=== PATIENT | male | born 1945 | race Caucasian/White ===

== ENCOUNTER → 2017-11-23 07:02 | Outpatient (CLI) | payer MEDICARE, SELFPAY ==
[2017-11-23 09:53] LABS: Alanine Aminotransferase 34 U/L (12-78); Albumin Level 3.4 gm/dL (3.4-5.0); Alkaline Phosphatase 71 U/L (46-116); Anion Gap 8.6 mEq/L (5-15); Aspartate Amino Transferase 23 U/L (15-37); Bilirubin,Total 0.4 mg/dL (0.2-1.0); Blood Urea Nitrogen 24 mg/dL (7-18); Carbon Dioxide 29 mmol/L (21.0-32.0); Chloride 105 mmol/L (98-107); Chol/HDL Ratio 5.5 (1-3.5); Cholesterol 210 mg/dL (140-200); Creatinine,Serum 1.07 mg/dL (0.70-1.30); Estimated Glomerular Filt Rate 68 ml/min (>60); GFR (African American) 83 ML/MIN (>60); Globulin 3.3 gm/dl (1.3-3.2); Glucose 100 mg/dL (74-106); HDL Cholesterol 38 mg/dL (27-67); LDL Cholesterol 135 mg/dL (0-130); Potassium 4.6 mmoL/L (3.5-5.1); Prostate Specific Ag, Diagnost 0.53 ng/mL (0.0-4.0); Sodium 138 mmol/L (136-145); Thyroid Stimulating Hormone 2.14 uIU/ml (0.358-3.740); Total Protein,Serum 6.7 gm/dL (6.4-8.2); Triglycerides 186 mg/dL (30-200); VLDL Cholesterol 37 mg/dL (0-40)
== END ==
PROVIDERS: Visit Provider Internal Medicine
DX: E78.5 Hyperlipidemia, unspecified (principal); N40.1 Benign prostatic hyperplasia with lower urinary tract symptoms; F41.9 Anxiety disorder, unspecified
CPT/HCPCS: 36415; 80053; 80061; 84153; 84443

== ENCOUNTER → 2018-12-09 10:29 | Outpatient (CLI) | payer MEDICARE, SELFPAY ==
--- NOTE | 2018-12-09 10:32 | MR_ITS ---
MR ankle LT wo con ORDERING PHYSICIAN : Efren Galo PATIENT AGE: 73 years GENDER: Male HISTORY:ITS.REASON: ACHILLES TENDONITIS, LEFT LEG COMPARISON: View of the left ankle from 05/13/2015. TECHNIQUE: Routine multiplanar and multisequence are obtained. FINDINGS: Signal from the osseous marrow elements are normal. There is a small amount of tibiotalar joint fluid. There is some increased T2 signal in the medial and lateral subcutaneous soft tissues. The AP diameter of the Achilles tendon is not 0.1 mm. The upper limits of normal is usually 8.0 mm. There is also some intermediate signal within the central and left side of the Achilles tendon. There is no acute Achilles tendon tear. There is a small amount of fluid surrounding the history tibialis tendon and flexor hallux longus tendon although the flexor hallux longus tendon can communicate with the joint space 20% of the time and could account for the fluid. The remainder of the medial, anterior and lateral tendons. Normal. The anterior tibiofibular and talofibular ligaments are intact. IMPRESSION: Achilles tendinosis. Mediolateral mild subcutaneous edema. Mild tenosynovitis of the posterior tibialis tendon. This could also involve the flexor hallux longus tendon although some of this fluid could be related to the small joint effusion.
== END ==
PROVIDERS: PCP Internal Medicine; Visit Provider Orthopaedic Surgery
DX: M76.62 Achilles tendinitis, left leg (principal)
CPT/HCPCS: 73721

== ENCOUNTER 2020-06-21 15:47 | Emergency (ER) | payer MEDICARE, SELFPAY ==
[2020-06-21 16:27] VITALS: RESP 16; TEMP 36.6; O2SAT 98; BMI 29.5
--- NOTE | 2020-06-21 16:37 | HMH.EDUTC ---
[facility] [place] Clinical Impression: Exposure to COVID-19 virus Disposition: Home, Self-Care Condition on Discharge: Good Instructions: DI for COVID-19 (Suspected or Confirmed ), Coronavirus Disease 2019, COVID-19: Testing and Tracing, Preventing the Spread of Coronavirus Discharge Instructions Additional Instructions: *Monitor Temp, Over the counter Motrin or Tylenol as directed/as needed Tylenol every 4 hours and Motrin every 6 hours (as long as your family doctor has told you that you can take it) for fever or pain. and straight to ER if unable to lower temp less than 101.0 after medication given Follow up IMMEDIATELY for new or worsening symptoms or no Noticeable improvement over the next 48-72 hours. 911 for difficulty breathing or swallowing You were tested for today for COVID19 your test result should be back in the next 24-48 hours, you may call to the [facility] to see if your test results are back in the next 48 hours [phone] [facility] hours are 9am-9pm You was given a handout with instructions for Self Quarantine and Self isolation for while you wait on test results and what to do if they are positive If you are positive the Health Dept will be contacting you also Referrals: Reymundo Segura [Primary Care Provider] - As needed Time of Disposition: 16:39 Medical Decision Making - Rodrigo Inquiry Pt receiving controlled substance: No Rodrigo was queried for this patient: No Vital Signs: 06/21/20 16:27 Temperature 98 F Temperature Source Oral Respiratory Rate 16 02 Sat by Pulse Oximetry 98 Oxygen Delivery Method Room Air Orders (Tests/Meds): ORDERS Category Date Time Status Covid-19 Nasal PCR ([facility]) Routine Lab 06/21/20 15:52 Ordered [facility] [place]PI - General Stated complaint: covid test Time Seen by Provider: 06/21/20 16:37 Mode of Arrival: Ambulatory Source of Information: Patient Limitations: No Limitations Description of Symptoms (Recalled from Triage Doc. by RN): pt wants covid test; denies any symptoms HEENT Symptoms (Recalled from RN notes): No Resp Symptoms (Recalled from RN notes): No Skin Symptoms (Recalled from RN notes): No MS Symptoms (Recalled from RN notes): No Functional Status (Recalled from RN notes): na - History of Present Illness Provider Complaint: Patient states that he was recently around someone that tested positive for COVID States that he is not having any symptoms but wants to get tested - Related Data Home Medications Medication Instructions Recorded Confirmed finasteride 5 mg tablet 5 mg PO DAILY tab 01/04/18 01/10/19 lorazepam 0.5 mg tablet 0.5 mg PO QHS PRN 01/04/18 01/10/19 omeprazole 20 mg capsule,delayed 20 mg PO QHS cap 01/04/18 01/10/19 release sertraline 25 mg tablet 25 mg PO Q24H 01/04/18 01/10/19 tamsulosin 0.4 mg capsule 0.4 mg PO DAILY cap 01/04/18 01/10/19 Allergies Allergy/AdvReac Type Severity Reaction Status Date / Time No Known Allergies Allergy Unverified 01/10/19 15:26 - Worker's Comp Is this a Worker's Comp case?: No [facility] History - Hepatitis A Screen Drug use history?: No High risk sexual behaviors?: No History of sexually transmitted infection?: No Currently employed?: No Childcare worker?: No Do you have indoor plumbing?: Yes Do you have electricity?: Yes Attestation statement:: This patient has been screened for Hepatitis A risk factors. I have reviewed the patient's past medical history: Yes Medical History: Reports:: Gastroesophageal Reflux Disease(GERD) Other Surgeries: Yes: Appendectomy, Colonoscopy Comment: L Arm x4 - Social History Smoking Status: Unknown if ever smoked Alcohol Intake: never Occupational Status: retired Family Hx:: Cancer ROS Obtained: Yes All systems reviewed & no additional complaints, Yes Systems reviewed as appropriate & no additional complaints - Constitutional Constitutional: Reports system reviewed and no additional complaints, except as docu, Denies body ache, Denies chills,
[2020-06-21 16:47] VITALS: BP 0/0; PULSE 87; RESP 16; TEMP 36.6; O2SAT 98
== END 2020-06-21 16:48 | disposition home or self-care (01) ==
PROVIDERS: Emergency Provider Nurse Practitioner; PCP Internal Medicine
DX: Z20.822 Contact with and (suspected) exposure to COVID-19 (principal)
CPT/HCPCS: G0463; 99202; U0003

== ENCOUNTER → 2022-05-18 17:26 | Outpatient (CLI) | payer MEDICARE, SELFPAY ==
[2022-05-18 19:58] LABS: Basophils # 0.1 K/mm3 (0-0.2); Basophils % 0.6 % (0.1-2.0); Eosinophils # 0.1 K/mm3 (0.0-0.4); Eosinophils % 0.8 % (0.1-12.0); Hematocrit 45.2 % (42.0-52.0); Hemoglobin 14.6 g/dL (14.1-18.0); Lymphocytes # 1.9 K/mm3 (0.7-4.5); Lymphocytes % 17.1 % (10-50); Mean Corpuscular HGB Conc 32.2 g/dL (31.8-35.4); Mean Corpuscular Hemoglobin 31.2 pg (27.0-31.2); Mean Corpuscular Volume 96.8 fl (80-94); Mean Platelet Volume 8.5 fl (7.4-10.4); Monocytes # 0.5 K/mm3 (0.1-1.0); Monocytes % 4.9 % (1.7-9.3); Neutrophils # 8.3 K/mm3 (1.8-7.8); Neutrophils % 76.7 % (37.0-80.0); Platelet Count 316 K/mm3 (142-424); Red Blood Count 4.66 M/mm3 (4.60-6.20); Red Cell Distribution Width 12.7 % (11.5-17.5); White Blood Count 10.9 K/mm3 (4.8-10.8)
[2022-05-18 20:14] LABS: Alanine Aminotransferase 19 U/L (12-78); Albumin/Globulin Ratio 1.4 (1.1-1.8); Alkaline Phosphatase 95 U/L (38-126); Anion Gap 19.1 mEq/L (5-15); Aspartate Amino Transferase 22 U/L (17-59); Bilirubin,Total 0.4 mg/dl (0.2-1.3); Blood Urea Nitrogen 25 mg/dl (9-20); Carbon Dioxide 24 mmol/L (22.0-30.0); Chloride 101 mmol/L (98-107); Chol/HDL Ratio 4.4 (1-3.5); Cholesterol 211 mg/dl (140-200); Estimated Glomerular Filt Rate 65 ml/min (>60); GFR (African American) 79 ML/MIN (>60); Globulin 2.8 g/dL (1.3-3.2); Glucose 85 mg/dl (74-100); HDL Cholesterol 48 mg/dl (40-60); Potassium 4.1 mmoL/L (3.5-5.1); Sodium 140 mmol/L (136-145); Total Protein,Serum 6.8 g/dl (6.3-8.2); Triglycerides 102 mg/dl (30-150); VLDL Cholesterol 20 mg/dL (0-40)
[2022-05-18 20:25] LABS: Direct LDL Cholesterol 136.63 mg/dL (100-129)
[2022-05-18 20:44] LABS: Prostate Specific Ag Screen 0.5 ng/ml (0.0-4.0)
== END ==
PROVIDERS: PCP Internal Medicine; Visit Provider Internal Medicine
DX: E78.5 Hyperlipidemia, unspecified (principal); K21.9 Gastro-esophageal reflux disease without esophagitis; F41.9 Anxiety disorder, unspecified; K76.0 Fatty (change of) liver, not elsewhere classified; N40.1 Benign prostatic hyperplasia with lower urinary tract symptoms; Z12.5 Encounter for screening for malignant neoplasm of prostate
CPT/HCPCS: 80053; 80061; 85025; G0103

== ENCOUNTER 2023-09-29 12:27 | Outpatient (CLI) | payer MEDICARE, SELFPAY ==
[2023-09-29 12:59] LABS: Basophils # 0.1 K/mm3 (0-0.2); Basophils % 1.2 % (0.1-2.0); Eosinophils # 0.2 K/mm3 (0.0-0.4); Eosinophils % 2.4 % (0.1-12.0); Hematocrit 48.2 % (42.0-52.0); Hemoglobin 15.6 g/dL (14.1-18.0); Lymphocytes # 2.2 K/mm3 (0.7-4.5); Mean Corpuscular HGB Conc 32.3 g/dL (31.8-35.4); Mean Corpuscular Hemoglobin 31.6 pg (27.0-31.2); Mean Corpuscular Volume 97.8 fl (80-94); Mean Platelet Volume 8.3 fl (7.4-10.4); Monocytes # 0.4 K/mm3 (0.1-1.0); Monocytes % 5.5 % (1.7-9.3); Neutrophils # 3.9 K/mm3 (1.8-7.8); Platelet Count 308 K/mm3 (142-424); Red Blood Count 4.93 M/mm3 (4.60-6.20); Red Cell Distribution Width 12.9 % (11.5-17.5); White Blood Count 6.8 K/mm3 (4.8-10.8)
[2023-09-29 13:30] LABS: Alanine Aminotransferase 22 U/L (12-78); Albumin Level 4.3 g/dl (3.5-5.0); Albumin/Globulin Ratio 1.6 (1.1-1.8); Alkaline Phosphatase 64 U/L (38-126); Anion Gap 9.7 mEq/L (5-15); Aspartate Amino Transferase 29 U/L (17-59); Bilirubin,Total 0.5 mg/dl (0.2-1.3); Blood Urea Nitrogen 25 mg/dl (9-20); Calcium 9.4 mg/dl (8.4-10.2); Carbon Dioxide 25 mmol/L (22.0-30.0); Chloride 109 mmol/L (98-107); Chol/HDL Ratio 7.1 (1-3.5); Cholesterol 275 mg/dl (140-200); Estimated Glomerular Filt Rate 65 ml/min (>60); GFR (African American) 79 ML/MIN (>60); Globulin 2.7 g/dL (1.3-3.2); Glucose 97 mg/dl (74-100); HDL Cholesterol 39 mg/dl (40-60); Potassium 4.7 mmoL/L (3.5-5.1); Sodium 139 mmol/L (136-145); Triglycerides 152 mg/dl (30-150); VLDL Cholesterol 30 mg/dL (0-40)
[2023-09-29 13:40] LABS: Direct LDL Cholesterol 161.42 mg/dL (100-129)
[2023-09-29 14:00] LABS: Prostate Specific Ag Screen 0.4 ng/ml (0.0-4.0)
== END 2023-09-29 23:59 | disposition home or self-care (01) ==
LOC: LAB.DROPOF 12:28
PROVIDERS: PCP Internal Medicine; Visit Provider Internal Medicine
DX: E78.5 Hyperlipidemia, unspecified (principal); Z12.5 Encounter for screening for malignant neoplasm of prostate; M15.0 Primary generalized (osteo)arthritis; K76.0 Fatty (change of) liver, not elsewhere classified
CPT/HCPCS: 80053; 80061; 85025; G0103

== ENCOUNTER 2024-11-28 11:40 | Outpatient (CLI) | payer MEDICARE, SELFPAY ==
[2024-11-28 14:04] LABS: Prostate Specific Ag Screen 0.4 ng/ml (0.0-4.0)
== END 2024-11-28 23:59 | disposition home or self-care (01) ==
LOC: LAB 11:40
PROVIDERS: PCP Internal Medicine; Visit Provider Internal Medicine
DX: Z12.5 Encounter for screening for malignant neoplasm of prostate (principal)
CPT/HCPCS: 36415; G0103

== ENCOUNTER 2024-12-14 20:00 | Observation (INO) | payer MEDICARE, SELFPAY ==
[2024-12-14] VITALS (9 sets, daily range): BP systolic 149–190; BP diastolic 85–116; PULSE 64–82; RESP 13–18; TEMP 36.6; O2SAT 94–97; BMI 29.5
--- NOTE | 2024-12-14 20:18 | HMH.EDGENADL ---
Discharge Plan Disposition Patient Disposition: Admitted Condition: Fair Clinical Impressions Clinical Impression: Headache, Acute hyponatremia, Dehydration Discharge ED Provider: Milady Overton General Adult HPI General Chief complaint: Headache Stated complaint: nausea,headache, over heated Time Seen by Provider: 12/14/24 20:06 History of Present Illness HPI narrative: This patient is a 79-year-old male with a history of migraines and anxiety presenting to the emergency department for evaluation with concern for possible heat exhaustion, headache, and nausea. Patient reports that he was out in the heat all day working and then went golfing. He states that he had 2 beers while golfing but drink more water today than he ever has. He notes that despite maintaining adequate hydration, he started having severe headache, nausea, and just feels bad overall. He thinks that he got too hot. He took his migraine medication 2 hours ago but it did not help. He notes that headache was gradual in onset and is dull. It is not sudden onset worst headache of his life. He denies any visual changes, numbness, tingling, or other concerns. No pain elsewhere. Related Data Home Medications ?Medication ?Instructions ?Recorded ?Confirmed finasteride 5 mg tablet 5 mg PO DAILY 01/04/18 05/22/24 tamsulosin 0.4 mg capsule 0.4 mg PO DAILY 01/04/18 05/22/24 Previous Rx's ?Medication ?Instructions ?Recorded amoxicillin 500 mg capsule 1,000 mg (2 x 500 mg) PO BID #40 05/22/24 caps hydrocodone 5 mg-acetaminophen 325 1 tab PO Q8H PRN cough #30 tabs 05/22/24 mg tablet methylprednisolone 4 mg tablets in See Rx Instructions PO PER PKG DIR 05/22/24 a dose pack #21 tabs sertraline 50 mg tablet See Rx Instructions .Route 09/13/24 .COMPLEX #90 tabs omeprazole 40 mg capsule,delayed See Rx Instructions .Route 09/19/24 release .COMPLEX #90 caps trazodone 50 mg tablet 50 mg PO DAILY #90 tabs 10/12/24 indomethacin 25 mg capsule 25 mg PO Q8H #30 caps 10/13/24 lorazepam 0.5 mg tablet 0.5 mg PO TID PRN anxiety #60 tabs 11/03/24 Allergies Allergy/AdvReac Type Severity Reaction Status Date / Time No Known Allergies Allergy Verified 05/22/24 15:08 [facility] Disclaimer: The information contained in this section may have been updated after the patient was seen, as this information can be updated by other users. Surgical History (Updated 12/14/24 @ 22:45 by Stephy Han RN) History of surgery on arm History of appendectomy Social History Smoking Status: Never smoker alcohol intake: never current occupational status: retired Travel in the last 8 weeks?: None Have you lived/traveled outside [place] in past 30 days?: No Contact w/someone who lives/traveled outside US past 30 days?: No Exposure to someone with infectious disease in past 14 days?: No Do you have a fever (greater than 100.4 F or 38 C)?: No Have you tested positive for COVID-19?: No Exposed to someone with COVID-19 in past 14 days?: No Do you have a sore throat?: No Do you have a cough?: No Do you have any weakness?: No Do you have any diarrhea?: No Are you experiencing any unusual bleeding?: No Do you have any muscle aches/pain?: No Do you have any abdominal pain?: No Are you experiencing loss of taste or smell?: No Other Medical History Have you received the Flu Vaccine for this season: Yes Have you received the Pneumonia Vaccine: Yes ROS Obtained: Yes All systems reviewed & no additional complaints except as documented Physical Exam General General appearance: alert and in no apparent distress Head Head exam: atraumatic and normocephalic Eye Eye exam: Present normal appearance, PERRL and EOMI ENT ENT exam: Present normal exam, normal oropharynx, mucous membranes moist and normal external ear exam Neck Neck exam: Present normal inspection, full ROM and trachea midline; Absent tenderness Chest Chest inspection: Present normal inspection and symmetric chest wall rise; Absent tenderness Respiratory Respiratory exam: Present normal lung sounds bilaterally; Absent respiratory distress, wheezes, stridor or accessory muscle use Cardiovascular Cardiovascular exam: Present regular rate and normal rhythm Abdominal Exam Abdominal exam: Present soft; Absent distention, tenderness or guarding Extremities Exam Extremities exam: Present normal inspection, full ROM and normal capillary refill; Absent tenderness or edema Back Exam Back exam: Present normal inspection and full ROM; Absent tenderness Neurological Exam Neurological exam: Present alert, oriented X3, CN II-XII intact and normal gait; Absent motor sensory deficit Psychiatric Psychiatric exam: Present normal affect and normal mood Skin Skin exam: Present warm and dry Medical Decision Making Medical Records Medical records reviewed: Yes I reviewed the patient's medical records. Screening: Per USPSTF and CDC recommendations, given the prevalence of disease in our region, it is our hospital?s policy to screen for HIV and viral Hepatitis for all patients aged 18 and over and those with ongoing risk factors. Rodrigo Inquiry Pt receiving controlled substance: No Vital Signs: 12/14/24 20:10 12/14/24 20:16 12/14/24 20:30 Temperature 97.9 F Temperature Source Oral Pulse Rate 78 Pulse Rate [Left] 78 Respiratory Rate 16 Blood Pressure 190/101 H 177/100 H Blood Pressure [Right Arm] 190/101 H Blood Pressure Mean 138 Blood Pressure Mean [Right Arm] 130 Blood Pressure Source Blood Pressure Source [Right Arm] Automatic Cuff Blood Pressure Position Blood Pressure Position [Right Arm] Sitting 02 Sat by Pulse Oximetry 96 96 Oxygen Delivery Method Room Air 12/14/24 21:00 12/14/24 21:34 12/14/24 22:00 Temperature Temperature Source Pulse Rate 82 78 77 Pulse Rate [Left] Respiratory Rate 18 17 13 Blood Pressure 178/116 H 167/85 H 164/85 H Blood Pressure [Right Arm] Blood Pressure Mean 134 123 115 Blood Pressure Mean [Right Arm] Blood Pressure Source Blood Pressure Source [Right Arm] Blood Pressure Position Blood Pressure Position [Right Arm] 02 Sat by Pulse Oximetry 97 97 96 Oxygen Delivery Method 12/14/24 22:30 12/14/24 23:00 12/14/24 23:12 Temperature 97.9 F Temperature Source Oral Pulse Rate 69 64 64 Pulse Rate [Left] Respiratory Rate 16 16 14 Blood Pressure 158/89 H 149/88 H 149/88 H Blood Pressure [Right Arm] Blood Pressure Mean 123 116 Blood Pressure Mean [Right Arm] Blood Pressure Source Automatic Cuff Blood Pressure Source [Right Arm] Blood Pressure Position Sitting Blood Pressure Position [Right Arm] 02 Sat by Pulse Oximetry 96 94 L Oxygen Delivery Method Room Air Lab Data Lab results reviewed: Yes I reviewed the patient's lab results. Lab Results 12/14/24 20:15: WBC 9.9, RBC 4.25 L, Hgb 13.2 L, Hct 37.5 L, MCV 88.2, MCH 31.1, MCHC 35.2, RDW 11.9, Plt Count 263, MPV 9.1, Neut % (Auto) 67.9, Lymph % (Auto) 24.0, [place] % (Auto) 6.6, Eos % (Auto) 0.9, Baso % (Auto) 0.3, Neut # (Auto) 6.7, Lymph # (Auto) 2.4, [place] # (Auto) 0.7, Eos # (Auto) 0.1, Baso # (Auto) 0.0, PT 11.1, INR 1.00, VBG pH 7.41, VBG pCO2 32.5 L, VBG pO2 77.8 H, VBG HCO3 20.2 L, VBG Total CO2 21.2 L, VBG O2 Saturation 95.8 H, VBG Base Excess -4.4 L, VBG Lactic Acid 1.5, Sodium 123 L, Potassium 3.7, Chloride 94 L, Carbon Dioxide 21 L, Anion Gap 11.7, BUN 14, Creatinine 1.00, Estimated Creat Clear 87, Estimated GFR 72, Est GFR ( Amer) 88, Glucose 118 H, Calcium 8.8, Phosphorus 2.9, Magnesium 1.5 L, Total Bilirubin 1.1, AST 30, ALT 19, Alkaline Phosphatase 51, Total Creatine Kinase 183 H, Troponin I < 0.01, Total Protein 6.8, Albumin 4.1, Globulin 2.7, Albumin/Globulin Ratio 1.5, TSH 1.62, Thyroxine (T4) 8.1, HCV Ab SANCHEZ w/Rflx PCR Qn Negative, HIV Ag/Ab Combo Qual Negative 12/14/24 21:35: Urine Color Yellow, Urine Appearance Clear, Urine pH 6.5, Ur Specific [place] 1.010, Urine Protein Negative, Urine Glucose (UA) Negative, Urine Ketones Negative, Urine Blood Negative, Urine Nitrate Negative, Urine Bilirubin Negative, Urine Urobilinogen 0.2, Ur Leukocyte Esterase Negative, Urine RBC None, Urine WBC Occasional, Ur Squamous Epith Cells None, Urine Bacteria Trace, Urine Sodium 125.0 H 12/14/24 20:15 12/14/24 20:15 Orders (Tests/Meds): ED MEDICATIONS Generic Name Dose Route Start Last Admin Trade Name Freq PRN Reason Stop Dose Admin Acetaminophen 650 mg 06/26/25 22:40 Acetaminophen 325mg Tab PO 01/13/25 22:39 Q4HP PRN Fever or Mild Pain (1-3) Hydrocodone Bitart/Acetaminophen 1 tab 12/14/24 22:40 Hydrocodone/Apap 5/325 Mg Tablet PO 01/13/25 22:39 Q4HP PRN Mild to Moderate Pain (1-6) Al Hydrox/Mg Hydrox/Simethicone 30 ml 12/14/24 22:40 Aluminum/Magnesium/Simethicone 30ml Udc PO 01/13/25 22:39 QIDP PRN Dyspepsia Enoxaparin Sodium 40 mg 12/15/24 09:00 Enoxaparin 40mg/0.4ml Syringe SUBCUT 01/14/25 08:59 DAILY CRUZITO Ondansetron HCl 4 mg 12/14/24 22:40 Ondansetron 4mg/2ml Vial IV 01/13/25 22:39 Q8HP PRN Nausea Discontinued Medications Generic Name Dose Route Start Last Admin Trade Name Freq PRN Reason Stop Dose Admin Acetaminophen 1,000 mg 12/14/24 20:18 12/14/24 20:36 Acetaminophen 1,000mg/100ml Vial IV 12/14/24 20:19 1,000 mg ONCE ONE Administration Diphenhydramine HCl 50 mg 12/14/24 20:17 12/14/24 20:33 Diphenhydramine 50mg/Ml Vial IV 12/14/24 20:18 50 mg ONCE ONE Administration Lactated Ringer's 1,000 mls @ 999 mls/hr 12/14/24 20:17 12/14/24 20:35 Lactated Ringer's 1000 Ml Bag IV 12/14/24 21:17 999 mls/hr .Q1H1M ONE Administration Ketorolac Tromethamine 15 mg 12/14/24 20:17 12/14/24 20:32 Ketorolac 30mg/Ml Vial IV 12/14/24 20:18 15 mg ONCE ONE Administration Metoclopramide HCl 5 mg 12/14/24 20:17 12/14/24 20:35 Metoclopramide Hcl 10mg/2ml Vial IVP 12/14/24 20:18 5 mg ONCE ONE Administration ORDERS Category Date Time Status CT head/brain wo con Stat Cat Scan 12/14/24 20:59 Completed Basic Metabolic Panel AMLAB Lab 12/15/24 06:00 Ordered CK [Creatine Kinase] Stat Lab 12/14/24 20:15 Completed Complete Blood Count Auto Diff AMLAB Lab 12/15/24 06:00 Ordered Complete Blood Count Auto Diff Stat Lab 12/14/24 20:15 Completed Comprehensive Metabolic Panel Stat Lab 12/14/24 20:15 Completed HIV Combo Stat Lab 12/14/24 20:15 Completed Hepatitis C Ab Qual. W/ RFX Stat Lab 12/14/24 20:15 Completed INR [Prothrombin Time INR] Stat Lab 12/14/24 20:15 Completed MAG [Magnesium] Stat Lab 12/14/24 20:15 Completed PHOS [Phosphorous] Stat Lab 12/14/24 20:15 Completed Sodium,Urine Random Stat Lab 12/14/24 21:35 Completed T4 (Thyroxine) Stat Lab 12/14/24 20:15 Completed TSH [Thyroid Stimulating Hormone] Stat Lab 12/14/24 20:15 Completed Trop I [Troponin I] Stat Lab 12/14/24 20:15 Completed Troponin I Q3H Lab 12/15/24 02:30 Ordered UA [Urinalysis and Microscopic] Stat Lab 12/14/24 21:35 Completed VBG [Venous Blood Gas] Stat RT 12/14/24 20:15 Completed ECG Data Tracing #1: I reviewed this ECG and interpreted as documented below: Normal sinus rhythm with a first-degree AV block with a ventricular rate of 76 bpm. AL interval is [address] changes concerning for ischemia. ECG initial impression date: 12/14/24 ECG initial impression time: 20:30 Medical Decision Narrative: In summary, this patient is a 79-year-old male presenting to the Emergency Department for evaluation of headache, nausea, and concerns for possible heat exposure. Differential diagnoses considered include but are not limited to dehydration, hyponatremia, heat exhaustion, rhabdomyolysis, intracranial hemorrhage, complex migraine. Ruling out the most morbid conditions drove assessment. It should be noted patient's history includes migraines and anxiety which may or may not be at goal therapy. This complicates all aspects of care by increasing patient's risk for morbidity. I reviewed patient's past medical records and noted PCP evaluations for maintenance of health. On exam, patient is lying in bed in no acute distress. He is neurologically intact. He is hypertensive with systolics in the 190s. Cardiopulmonary and abdominal exams are benign. Workup included CBC, CMP, lactic acid, CK, VBG, TSH, T4, magnesium, phosphorus, urinalysis, EKG. He was given a bolus of IV fluids as well as IV Toradol, acetaminophen, Reglan, Benadryl for migraine cocktail. I advised him that I would recommend CT scan of his head without contrast, especially if his headache does not improve with these interventions, he wants to defer this at this time pending reassessment.. On reassessment, the patient is feeling better. Labs demonstrate acute hyponatremia with a sodium of 123, which is concerning with his symptoms. He also has mild hypomagnesemia and mildly elevated CK. Workup otherwise is reassuring as far as lab evaluation goes. Given the significant headache in the setting of hyponatremia, I elected to obtain CT head without contrast. I independently interpreted CT head prior to the radiologist read and noted space-occupying lesion, no obvious cerebral edema. Please see their read for final interpretation. Ultimately given that the patient has acute hyponatremia with headache and general weakness, I feel he would benefit from admission for close monitoring and slow correction. I had an interactive discussion with the hospitalist who admitted the patient in stable condition. Critical Care Critical Care Time Critical Care Time: Yes Attestation: On 12/14/24, the high probability of a clinically significant, sudden or life threatening deterioration of the following system(s) required my full and direct attention, intervention and personal management. The time I documented below is in addition to time spent performing reported procedures but includes the following listed in this critical care notation. Total Time Total Critical Care Time: 35
--- OUTSIDE RECORDS SUMMARY | 2024-12-14 20:19 | XMS_ITS | Data Portability ---
Author Organization [facility] Foreman BRYAN Lantigua [employer] Address [address] [place] [address] Care Team Providers Care In Service Educator Name Role Phone PIO CELESTIN Primary Care Provider Assessment No assessment recorded. Plan of Treatment Reminders Order Date Submit Date Provider Last Modified By Organization Details Last Modified Time Details Appointments RECHECK 2024 10:15A M SHERON GOMEZ MD Not available Not available Not available Lab urinalysi s panel, auto 2023 024 [email or web address] [facility], [address], [place], [address], 10/01/2023 09:07:15 urinalysi s panel, auto 2022 023 [facility], [address], [address], [place], [address], 09/28/2022 10:53:55 urinalysi s panel, auto 2020 021 [email or web address] [facility], [address], [address], [place], [address], 07/29/2020 10:44:06 urinalysi s, dipstick, auto 2019 020 [email or web address] [facility], [address], [address], [place], [address], 07/11/2019 15:39:55 Referral None recorded. Procedures None recorded. Surgeries None recorded. Imaging None recorded. Medication Orders tamsulosi n 0.4 mg capsule 2023 024 [facility], [address] [place] [address] [address] [place], [id number], 09/19/2024 16:42:57 finasteri de 5 mg tablet 2023 024 [facility], [address] [place] [address] [address] [place], [id number], 09/19/2024 16:42:57 tamsulosi n 0.4 mg capsule 2022 023 [facility], [address] [place] [address] [address] [place], [id number], 07/10/2023 11:33:46 finasteri de 5 mg tablet 2022 023 [facility], [address] [place] [address] [address] [place], [id number], 07/10/2023 11:33:46 tamsulosi n 0.4 mg capsule 2021 022 [facility], [address] [place] [address] [address] [place], [id number], 09/22/2021 11:41:46 finasteri de 5 mg tablet 2021 022 [facility], [address] [place] [address] [address], [id number], 09/22/2021 11:41:46 tamsulosi n 0.4 mg capsule 2020 021 [facility], [address] [place] [address] [place], [id number], 07/29/2020 10:45:49 finasteri de 5 mg tablet 2020 021 [facility], [address] [place] [address] [address] [place], [id number], 07/29/2020 10:45:49 finasteri de 5 mg tablet 2019 020 [facility], [address] [place] [address] [address] [place], [id number], 07/11/2019 15:41:08 tamsulosi n 0.4 mg capsule 2019 020 [facility], [address] [place] [address] [address] [place], [phone], 07/11/2019 15:41:07 Patient TargetsNo targets recorded. Patient InstructionsNo instructions recorded. Reason for Referral None Reported. Results Created Date Observation Date Name Description Value Unit Range Abnormal Flag Note LastModifiedBy Organization Detail LastModifiedTime 07/29/19 21 07/29/2020 urina lysis panel , auto Unknown Analyte Clean Catch Not Available [facility] [address], [place], [address], 07/29/2020 10:02:24 07/29/19 21 07/29/2020 urina lysis panel , auto Unknown Analyte Yellow Not Available [facility] [address], [place], [address], 07/29/2020 10:02:24 07/29/19 21 07/29/2020 urina lysis panel , auto Unknown Analyte Clear Not Available [facility] [address], [place], [address], 07/29/2020 10:02:24 07/29/19 21 07/29/2020 urina lysis panel , auto Unknown Analyte 1.020 Not Available [facility] [address], [place], [address], 07/29/2020 10:02:24 07/29/19 21 07/29/2020 urina lysis panel , auto Unknown Analyte 1.003- 1.035 Not Available [facility] [address], [place], [address], 07/29/2020 10:02:24 07/29/19 21 07/29/2020 urina lysis panel , auto Unknown Analyte 5.0 Not Available [facility] [address], [place], [address], 07/29/2020 10:02:24 07/29/19 21 07/29/2020 urina lysis panel , auto Unknown Analyte 5.0-8. 0 Not Available [facility] [address], [place], [address], 07/29/2020 10:02:24 07/29/19 21 07/29/2020 urina lysis panel , auto Unknown Analyte Negati ve Not Available [facility] [address], [place], [address], 07/29/2020 10:02:24 07/29/19 21 07/29/2020 urina lysis panel , auto Unknown Analyte Negati ve Not Available [facility] [address], [place], [address], 07/29/2020 10:02:24 07/29/19 21 07/29/2020 urina lysis panel , auto Unknown Analyte Negati ve Not Available [facility] [address], [place], [address], 07/29/2020 10:02:24 07/29/19 21 07/29/2020 urina lysis panel , auto Unknown Analyte Negati ve Not Available [facility] [address], [place], [address], 07/29/2020 10:02:24 07/29/19 21 07/29/2020 urina lysis panel , auto Unknown Analyte Negati ve Not Available [facility] [address], [place], [address], 07/29/2020 10:02:24 07/29/19 21 07/29/2020 urina lysis panel , auto Unknown Analyte Negati ve Not Available [facility] [address], [place], [address], 07/29/2020 10:02:24 07/29/19 21 07/29/2020 urina lysis panel , auto Unknown Analyte Normal Not Available [facility] [address], [place], [address], 07/29/2020 10:02:24 07/29/19 21 07/29/2020 urina lysis panel , auto Unknown Analyte Normal Not Available [facility] [address], [place], [address], 07/29/2020 10:02:24 07/29/19 21 07/29/2020 urina lysis panel , auto Unknown Analyte Negati ve Not Available [facility] [address], [place], [address], 07/29/2020 10:02:24 07/29/19 21 07/29/2020 urina lysis panel , auto Unknown Analyte Negati ve Not Available [facility] [address], [place], [address], 07/29/2020 10:02:24 07/29/19 21 07/29/2020 urina lysis panel , auto Unknown Analyte Normal Not Available [facility] [address], [place], [address], 07/29/2020 10:02:24 07/29/19 21 07/29/2020 urina lysis panel , auto Unknown Analyte Normal 1 mg/dl Not Available [facility] [address], [place], [address], 07/29/2020 10:02:24 07/29/19 21 07/29/2020 urina lysis panel , auto Unknown Analyte Negati ve Not Available [facility] [address], [place], [address], 07/29/2020 10:02:24 07/29/19 21 07/29/2020 urina lysis panel , auto Unknown Analyte Negati ve Not Available [facility] [address], [place], [address], 07/29/2020 10:02:24 07/29/19 21 07/29/2020 urina lysis panel , auto Unknown Analyte Negati ve Not Available [facility] [address], [place], [address], 07/29/2020 10:02:24 07/29/19 21 07/29/2020 urina lysis panel , auto Unknown Analyte Negati ve Not Available [facility] [address] [place] [address] [address], [place], [address], 07/29/2020 10:02:24 07/11/19 20 07/11/2019 urina lysis , dipst ick, auto Unknown Analyte Yellow Not Available [facility] [address] [place] [address] [address], [place], [address], 07/11/2019 14:45:09 07/11/19 20 07/11/2019 urina lysis , dipst ick, auto Unknown Analyte Clear Not Available [facility] [address] [place] [address] [address], [place], [address], 07/11/2019 14:45:09 07/11/19 20 07/11/2019 urina lysis , dipst ick, auto Unknown Analyte 1.015 Not Available [facility] [address] [place] [address] [address], [place], [address], 07/11/2019 14:45:09 07/11/19 20 07/11/2019 urina lysis , dipst ick, auto Unknown Analyte 1.003 - 1.035 Not Available [facility] [address] [place] [address] [address], [place], [address], 07/11/2019 14:45:09 07/11/19 20 07/11/2019 urina lysis , dipst ick, auto Unknown Analyte 5.0 Not Available [facility] [address], [place], [address], 07/11/2019 14:45:09 07/11/19 20 07/11/2019 urina lysis , dipst ick, auto Unknown Analyte 5.0 - 8.0 Not Available [facility] [address], [place], [address], 07/11/2019 14:45:09 07/11/19 20 07/11/2019 urina lysis , dipst ick, auto Unknown Analyte Negati ve Not Available [facility] [address], [place], [address], 07/11/2019 14:45:09 07/11/19 20 07/11/2019 urina lysis , dipst ick, auto Unknown Analyte Negati ve Not Available [facility] [address], [place], [address], 07/11/2019 14:45:09 07/11/19 20 07/11/2019 urina lysis , dipst ick, auto Unknown Analyte Negati ve Not Available [facility] [address], [place], [address], 07/11/2019 14:45:09 07/11/19 20 07/11/2019 urina lysis , dipst ick, auto Unknown Analyte Negati ve Not Available [facility] [address], [place], [address], 07/11/2019 14:45:09 07/11/19 20 07/11/2019 urina lysis , dipst ick, auto Unknown Analyte Negtiv e Not Available [facility] [address], [place], [address], 07/11/2019 14:45:09 07/11/19 20 07/11/2019 urina lysis , dipst ick, auto Unknown Analyte Negati ve - Trace Not Available [facility] [address], [place], [address], 07/11/2019 14:45:09 07/11/19 20 07/11/2019 urina lysis , dipst ick, auto Unknown Analyte Normal Not Available [facility] [address], [place], [address], 07/11/2019 14:45:09 07/11/19 20 07/11/2019 urina lysis , dipst ick, auto Unknown Analyte Normal Not Available [facility] [address], [place], [address], 07/11/2019 14:45:09 07/11/19 20 07/11/2019 urina lysis , dipst ick, auto Unknown Analyte Negati ve Not Available [facility] [address], [place], [address], 07/11/2019 14:45:09 07/11/19 20 07/11/2019 urina lysis , dipst ick, auto Unknown Analyte Negati ve Not Available [facility] [address], [place], [address], 07/11/2019 14:45:09 07/11/19 20 07/11/2019 urina lysis , dipst ick, auto Unknown Analyte Normal Not Available [facility] [address], [place], [address], 07/11/2019 14:45:09 07/11/19 20 07/11/2019 urina lysis , dipst ick, auto Unknown Analyte Normal - 1mg/dl Not Available [facility] [address] [place] [address] [address], [place], [address], 07/11/2019 14:45:09 07/11/19 20 07/11/2019 urina lysis , dipst ick, auto Unknown Analyte Negati ve Not Available [facility] [address], [place], [address], 07/11/2019 14:45:09 07/11/19 20 07/11/2019 urina lysis , dipst ick, auto Unknown Analyte Negati ve Not Available [facility] [address], [place], [address], 07/11/2019 14:45:09 07/11/19 20 07/11/2019 urina lysis , dipst ick, auto Unknown Analyte Negati ve Not Available [facility] [address] [place] [address] [address], [place], [address], 07/11/2019 14:45:09 07/11/19 20 07/11/2019 urina lysis , dipst ick, auto Unknown Analyte Negati ve Not Available [facility] [address], [place], [address], 07/11/2019 14:45:09 07/11/19 20 07/11/2019 urina lysis , dipst ick, auto Unknown Analyte Clean Catch Not Available [facility] U[facility] [address], [place], [address], 07/11/2019 14:45:09 07/11/19 20 07/11/2019 urina lysis , dipst ick, auto Unknown Analyte Automa yudith Not Available [facility] [address], [place], [address], 07/11/2019 14:45:09 09/29/19 23 09/28/2022 urina lysis panel , auto Unknown Analyte Clean Catch Not Available [facility] [address], [place], [address], 09/28/2022 10:30:07 09/29/19 23 09/28/2022 urina lysis panel , auto Unknown Analyte Yellow Not Available [facility] [address], [place], [address], 09/28/2022 10:30:07 09/29/19 23 09/28/2022 urina lysis panel , auto Unknown Analyte Clear Not Available [facility] [address], [place], [address], 09/28/2022 10:30:07 09/29/19 23 09/28/2022 urina lysis panel , auto Unknown Analyte 1.020 Not Available [facility] [address], [place], [address], 09/28/2022 10:30:07 09/29/19 23 09/28/2022 urina lysis panel , auto Unknown Analyte 5.0 Not Available [facility] [address], [place], [address], 09/28/2022 10:30:07 09/29/19 23 09/28/2022 urina lysis panel , auto Unknown Analyte Negati ve Not Available [facility] [address], [place], [address], 09/28/2022 10:30:07 09/29/19 23 09/28/2022 urina lysis panel , auto Unknown Analyte Negati ve Not Available [facility] [address], [place], [address], 09/28/2022 10:30:07 09/29/19 23 09/28/2022 urina lysis panel , auto Unknown Analyte Negati ve Not Available [facility] [address], [place], [address], 09/28/2022 10:30:07 09/29/19 23 09/28/2022 urina lysis panel , auto Unknown Analyte Normal Not Available [facility] [address], [place], [address], 09/28/2022 10:30:07 09/29/19 23 09/28/2022 urina lysis panel , auto Unknown Analyte Negati ve Not Available [facility] [address], [place], [address], 09/28/2022 10:30:07 09/29/19 23 09/28/2022 urina lysis panel , auto Unknown Analyte Normal Not Available [facility] [address], [place], [address], 09/28/2022 10:30:07 09/29/19 23 09/28/2022 urina lysis panel , auto Unknown Analyte Negati ve Not Available [facility] [address], [place], [address], 09/28/2022 10:30:07 09/29/19 23 09/28/2022 urina lysis panel , auto Unknown Analyte Negati ve Not Available [facility] [address], [place], [address], 09/28/2022 10:30:07 10/01/19 24 10/01/2023 urina lysis panel , auto Unknown Analyte Clean Catch Not Available [facility] [address], [place], [address], 10/01/2023 09:01:07 10/01/19 24 10/01/2023 urina lysis panel , auto Unknown Analyte Yellow Not Available [facility] [address], [place], [address], 10/01/2023 09:01:07 10/01/19 24 10/01/2023 urina lysis panel , auto Unknown Analyte Clear Not Available [facility] [address], [place], [address], 10/01/2023 09:01:07 10/01/19 24 10/01/2023 urina lysis panel , auto Unknown Analyte 1.010 Not Available [facility] [address], [place], [address], 10/01/2023 09:01:07 10/01/19 24 10/01/2023 urina lysis panel , auto Unknown Analyte 1.003- 1.035 Not Available [facility] [address], [place], [address], 10/01/2023 09:01:07 10/01/1910/01/2023 urina lysis panel , auto Unknown Analyte 5.0 Not Available [facility] [address], [place], [address], 10/01/2023 09:01:07 10/01/1910/01/2023 urina lysis panel , auto Unknown Analyte 5.0-8. 0 Not Available [facility] [address], [place], [address], 10/01/2023 09:01:07 10/01/1910/01/2023 urina lysis panel , auto Unknown Analyte Negati ve Not Available [facility] [address], [place], [address], 10/01/2023 09:01:07 10/01/1910/01/2023 urina lysis panel , auto Unknown Analyte Negati ve Not Available [facility] [address], [place], [address], 10/01/2023 09:01:07 10/01/1912 1010/01/2023 urina lysis panel , auto Unknown Analyte Negati ve Not Available [facility] [address], [place], [address], 10/01/2023 09:01:07 10/01/19 24 10/01/2023 urina lysis panel , auto Unknown Analyte Negati ve Not Available [facility] [address] [facility] [address], [place], [address], 10/01/2023 09:01:07 10/01/1910/01/2023 urina lysis panel , auto Unknown Analyte Negati ve Not Available [facility] [address], [place], [address], 10/01/2023 09:01:07 10/01/1910/01/2023 urina lysis panel , auto Unknown Analyte Negati ve Not Available [facility] [address], [place], [address], 10/01/2023 09:01:07 10/01/1910/01/2023 urina lysis panel , auto Unknown Analyte Normal Not Available [facility] [address], [place], [address], 10/01/2023 09:01:07 10/01/1910/01/2023 urina lysis panel , auto Unknown Analyte Normal Not Available [facility] [address], [place], [address], 10/01/2023 09:01:07 10/01/1910/01/2023 urina lysis panel , auto Unknown Analyte Negati ve Not Available [facility] [address], [place], [address], 10/01/2023 09:01:07 10/01/1910/01/2023 urina lysis panel , auto Unknown Analyte Negati ve Not Available [facility] [address], [place], [address], 10/01/2023 09:01:07 10/01/1910/01/2023 urina lysis panel , auto Unknown Analyte Normal Not Available [facility] [address], [place], [address], 10/01/2023 09:01:07 10/01/1910/01/2023 urina lysis panel , auto Unknown Analyte Normal 1 mg/dl Not Available [facility] [address], [place], [address], 10/01/2023 09:01:07 10/01/1910/01/2023 urina lysis panel , auto Unknown Analyte Negati ve Not Available [facility] [address], [place], [address], 10/01/2023 09:01:07 10/01/1910/01/2023 urina lysis panel , auto Unknown Analyte Negati ve Not Available [facility] [address], [place], [address], 10/01/2023 09:01:07 10/01/19 24 10/01/2023 urina lysis panel , auto Unknown Analyte Negati ve Not Available [facility] [address], [place], [address], 10/01/2023 09:01:07 10/01/19 24 10/01/2023 urina lysis panel , auto Unknown Analyte Negati ve Not Available [facility] [address], [place], [address], 10/01/2023 09:01:07 Result Notes None recorded. Procedures Surgical History Date Name Laterality Status Provider Name and Address Organization Details Recorded Time Appendectomy completed [facility] 07/11/2019 14:44:11 Imaging Results None recorded. Procedure Notes None recorded. Medical Equipment None Reported. Allergies No known drug allergies Medications Name Sig Start Date Stop Date Status Note LastModified by Organization Details LastModified Time tamsulosin 0.4 mg capsule TAKE ONE CAPSULE BY MOUTH EVERY DAY 025 active Not Available Not Available Not Avai lable finasteride 5 mg tablet TAKE ONE TABLET BY MOUTH EVERY DAY 025 active Not Available Not Available Not Avai lable Vitals Date Recorded Body height Body mass index (BMI) Body weight Heart rate Systolic blood pressure Diastolic blood pressure Provider Name and Address Organization Details Last Updated DateTime 0 182.88 cm 32.4 kg/m2 154969. 58 g 68 /min 133 mm[Hg] 72 mm[Hg] [facility] 0 14:39:57 Date Recorded Body weight Body mass index (BMI) Body height Provider Name and Address Organization Details Last Updated DateTime 07/29/2020 975500.65 g 31.1 kg/m2 182.88 cm Melissa Feldman [facility] 07/29/2020 10:02:08 Date Recorded Body height Body mass index (BMI) Body weight Provider Name and Address Organization Details Last Updated DateTime 09/22/2021 182.88 cm 31.1 kg/m2 842954.65 g [facility] 09/22/2021 11:05:21 Date Recorded Body weight Provider Name an d Address Organization Details Last Updated DateTime 09/28/2022 40248.4 g Dania Dyson [facility] 03/2023 10:29:58 Date Recorded Body height Body mass index (BMI) Body weight Provider Name and Address Organization Details Last Updated DateTime 10/01/2023 182.88 cm 28.3 kg/m2 78135.81 g Elaine Figueroa [facility] 10/01/2023 08:55:50 Social History Question Answer Notes LastModified by Organizat ion Details LastModified Time Tobacco Smoking Status Never [facility]oker [facility]11/2019 14:43:35 How Much Tobacco Do You Chew? None Information not available 07/11/2019 Marital Status Unknown Informatio n not available 07/11/2019 How Much Tobacco Do You Smoke? No [email or web address] Information not available 07/29/2020 Sex: Male Functional Status Question Answer Note LastModified by Organization D etails LastModified Time What is your level of alcohol consumption? None Information not available 07/11/2019 What is your occupation? retired Information not available 07/11/2019 Mental Status None recorded. Family History Relationship Description Onset Age of this Age Resolved Age Notes LastModified by Organization Details LastModified Time Unspecified Relation Family history of malignant neoplasm [email or web address] Not available 2019 14:43:21 Medical History Condition Response Acid Reflux (GERD) Y Past Encounters Encounter ID Performer Location Encounter Start Date Encounter Closed Date Diagnosis/Indication Diagnosis SNOMED-CT Code Diagnosis ICD10 Code Diagnosis Note [id number] MD HERMINIA HARMAN [facility] [address] [place] [address] 07/11/2019 14:19:47 07/11/2019 15:06:03 Benign prostatic hyperplasia with outflow obstruction 136811455 N40.1 his slight PSA deflection likely was due to inflammati on. Follow-up 1 year with PSA continue finasterid e and tamsulosin [id number] MD HERMINIA HARMAN [facility] [address] [place] [address] 07/29/2020 09:42:40 07/29/2020 10:42:40 Benign prostatic hyperplasia with outflow obstruction 198590127 N40.1 follow-up 1 year continue finasterid e and tamsulosin [id number] SHERON GOMEZ MD [facility] [address] [address] 09/22/2021 10:47:29 09/22/2021 11:34:56 Benign prostatic hyperplasia with outflow obstruction 387006707 N40.1 follow-up 1 year continue finasterid e and tamsulosin [id number] SHERON GOMEZ MD [facility] [address] [facility] [address] [address] 09/28/2022 10:17:30 09/28/2022 11:13:24 Benign prostatic hyperplasia with outflow obstruction 712220427 N40.1 follow-up 1 year continue finasterid e and tamsulosin [id number] SHERON GOMEZ MD [facility] [address] [address] 10/01/2023 08:44:36 10/01/2023 09:09:14 Benign prostatic hyperplasia with outflow obstruction 529088136 N40.1 follow-up 1 year continue finasterid e and tamsulosin Health Concerns Section Related Observation LastModified by Organization Detai ls LastModified Time None Recorded Concern Status LastModified by Organization Details LastModified Time None Recorded Advance Directives Directive None Recorded Payers Insurance Date Sequence Insurance Name Policy Number Policy Hendricks Covered Member ID Hendricks Member ID Guarantor Name 11/26/2024 1 [facility] (MEDICARE REPLACEMENT/A DVANTAGE - PPO) [id number] Nishant Callaway [id number] Nishant Callaway 10/01/2023 1 [place] Nishant Callaway [id number] Nishant Callaway Notes Date Note Type Note Provider Name and Address Organization Details Recorded Time 07/11/2019 text/html patient is here for scheduled 6 month follow-up. He has been followed at [facility] for multiple years with moderate obstructive urinary symptoms. He is been on finasteride as well as tamsulosin. 6 months ago his PSA was slightly elevated relatively up to 1.46 typically his PSAs have been around 0.5. He continues to void well. He typically has nocturia 1-2 and is satisfied he had a recent PSA in May of 0.42. [place], [address], [facility] 07/11/2019 15:40:24 07/29/2020 text/html patient here for yearly follow-up regarding moderate obstructive urinary symptoms. He continues on tamsulosin as well as finasteride. He typically has nocturia 0-1. PSA in May which was 0.35. He has no urologic complaints. He has been relatively healthy [facility]ERON GOMEZ [facility] [place], [address], [facility] 07/29/2020 10:44:38 09/22/2021 text/html patient is here for yearly follow-up with moderate obstructive urinary symptoms. He continues to take finasteride as well as tamsulosin. He had a PSA unchanged last month which was 0.35. He typically has nocturia 0. He has had no urethral bleeding SHERON GOMEZ MD [address] [place] [address] [place], [address], [facility] 09/22/2021 11:35:03 09/28/2022 text/html Patient is here for yearly follow-up regarding obstructive urination symptoms. He remains on finasteride as well as tamsulosin. He has been on this regimen for several years. He had recent PSA at his PCPs office which was less than 1. He is very satisfied. SHERON GOMEZ MD [facility] [place], [address], [facility] 09/28/2022 10:54:30 10/01/2023 text/html Patient is here for yearly follow-up regarding obstructive urination symptoms. He continues on finasteride and tamsulosin. He typically has nocturia 0-1 time per night. PSA this week was 0.4 and stable. He has no urologic complaints. MD Sean HARMAN, [place], [address], [facility] 10/01/2023 09:07:47
[2024-12-14 20:21] LABS: Basophils % 0.3 % (0.1-2.0); Eosinophils # 0.1 Kmm3 (0.0-0.4); Eosinophils % 0.9 % (0.1-12.0); Hematocrit 37.5 % (42.0-52.0); Hemoglobin 13.2 g/dL (14.1-18.0); Immature Granulocytes # 0.03 10^3uL; Immature Granulocytes % 0.3 %; Lymphocytes # 2.4 K/mm3 (0.7-4.5); Mean Corpuscular HGB Conc 35.2 g/dL (31.8-35.4); Mean Corpuscular Hemoglobin 31.1 pg (27.0-31.2); Mean Corpuscular Volume 88.2 fl (80-94); Mean Platelet Volume 9.1 fl (7.4-10.4); Monocytes # 0.7 K/mm3 (0.1-1.0); Monocytes % 6.6 % (1.7-9.3); Neutrophils # 6.7 K/mm3 (1.8-7.8); Neutrophils % 67.9 % (37.0-80.0); Nucleated Red Blood Cells # 0 10^3/uL; Nucleated Red Blood Cells % 0 %; Platelet Count 263 K/mm3 (142-424); Red Blood Count 4.25 M/mm3 (4.60-6.20); Red Cell Distribution Width 11.9 % (11.5-17.5); Red Cell Distribution Width-SD 37.7 fL; White Blood Count 9.9 K/mm3 (4.8-10.8)
--- NOTE | 2024-12-14 20:28 | ECG_ITS ---
APPROVED REPORT Exam: Resting ECG HR:76 bpm ECG Measurements Heart Rate 76 AXES AZ 217 P 32 QRSd 105 QRS -15 QT 373 T 34 QTc 404 Conclusion SINUS RHYTHM WITH FIRST DEGREE AV BLOCK ABNORMAL ECG UNCONFIRMED REPORT Electronically signed by : JOSE ALBERTS, 12/15/2024 04:12:34
[2024-12-14 20:31] LABS: Prothrombin Time 11.1 seconds (10.1-12.5)
[2024-12-14] MEDS: KETOROLAC 30MG/ML VIAL 15 MG IV (20:32)
[2024-12-14] MEDS: diphenhydrAMINE 50MG/ML VIAL 50 MG IV (20:33)
[2024-12-14] MEDS: METOCLOPRAMIDE HCL 10MG/2ML VIAL 5 MG IVP (20:35)
[2024-12-14] MEDS: LACTATED RINGERS 1000ML 1,000 ML 999 ML IV (20:35)
[2024-12-14 20:36] LABS: Magnesium 1.5 mg/dl (1.6-2.3); Phosphorous 2.9 mg/dl (2.5-4.5)
[2024-12-14] MEDS: ACETAMINOPHEN 1,000MG/100ML VIAL 1000 MG IV (20:36)
[2024-12-14 20:38] LABS: Alanine Aminotransferase 19 U/L (12-78); Albumin Level 4.1 g/dl (3.5-5.0); Albumin/Globulin Ratio 1.5 (1.1-1.8); Alkaline Phosphatase 51 U/L (38-126); Anion Gap 11.7 mEq/L (5-15); Aspartate Amino Transferase 30 U/L (17-59); Bilirubin,Total 1.1 mg/dl (0.2-1.3); Blood Urea Nitrogen 14 mg/dl (9-20); Calcium 8.8 mg/dl (8.4-10.2); Carbon Dioxide 21 mmol/L (22.0-30.0); Chloride 94 mmol/L (98-107); Creatine Kinase 183 U/L (55-170); Creatinine Clearance Estimated 87 mL/min (50-200); Estimated Glomerular Filt Rate 72 ml/min (>60); GFR (African American) 88 ML/MIN (>60); Globulin 2.7 g/dL (1.3-3.2); Glucose 118 mg/dl (74-100); Potassium 3.7 mmoL/L (3.5-5.1); Sodium 123 mmol/L (136-145); Total Protein,Serum 6.8 g/dl (6.3-8.2)
[2024-12-14 20:41] LABS: Lactate Venous 1.5 mmol/L (0.4-2.0); VBG Base Excess -4.4 mmol/L (-2.4-2.3); VBG HCO3 20.2 mmol/L (23-30); VBG Oxygen Saturation 95.8 % (50-70); VBG PCO2 32.5 mmol/L (35-51); VBG PH 7.41 mmol/L (7.31-7.41); VBG PO2 77.8 mmol/L (28-40); VBG Total CO2 21.2 mmol/L (23-27)
[2024-12-14 20:56] LABS: T4 (Thyroxine) 8.1 ug/dl (5.53-11.0)
--- NOTE | 2024-12-14 20:59 | CT_ITS ---
PROCEDURE INFORMATION: Exam: CT Head Without Contrast Exam date and time: 12/14/2024 9:11 PM Age: 79 years old Clinical indication: Pain; Headache; Additional info: Headache, acute hyponatremia TECHNIQUE: Imaging protocol: Computed tomography of the head without contrast. Radiation optimization: All CT scans at this facility use at least one of these dose optimization techniques: automated exposure control; mA and/or kV adjustment per patient size (includes targeted exams where dose is matched to clinical indication); or iterative reconstruction. COMPARISON: No relevant prior studies available. FINDINGS: Brain: Mild-moderate generalized cerebral/cerebellar atrophy. Mild white matter hypodensities which are nonspecific but most commonly associated with chronic microvascular ischemia in this age group. The IACs are grossly normal. No extra-axial fluid collections. No evidence of acute intracranial hemorrhage. Cerebral/cerebellar mathew-white matter differentiation is well maintained. No intracranial mass lesions. There are few scattered punctate cerebral calcifications consistent with small chronic postinfectious/inflammatory calcifications. No midline shift or herniation. Cerebral ventricles: Mild compensatory ventriculomegaly secondary to central atrophy. Pituitary gland and sella: The sella is grossly normal. Paranasal sinuses: Mucosal thickening in the right maxillary sinus and left posterior ethmoid distribution consistent with chronic sinusitis. No fluid levels. Mastoid air cells: Visualized mastoid air cells are clear. Orbital cavities: No acute intraorbital findings. Bones: No acute osseous findings. Soft tissues: No acute soft tissue findings. Vasculature: Moderate calcific atherosclerosis. No asymmetric vascular hyperdensities suggestive of thrombosis are identified. IMPRESSION: 1. No acute intracranial process. No intracranial hemorrhage or mass effect. 2. Atrophy with nonspecific white matter hypodensities most commonly representing chronic microvascular changes in this age group. 3. Moderate calcific atherosclerosis. 4. Sinusitis.
[2024-12-14 21:03] LABS: Troponin I < 0.01 ng/ml (0.00-0.034)
[2024-12-14 21:10] LABS: Thyroid Stimulating Hormone 1.62 uIU/mL (0.465-4.68)
[2024-12-14 21:41] LABS: Microscopic, Urine URINE MICROSCOPIC (MICROSCOPIC)
[2024-12-14 21:43] LABS: HIV Combo NEGATIVE (Negative)
[2024-12-14 21:49] LABS: Appearance,Urine CLEAR (Clear); Bilirubin,Urine Negative (Negative); Blood, Urine Negative (Negative); Color,Urine YELLOW (Yellow); Glucose,Urine (UA) Negative (Negative); Ketones,Urine Negative (Negative); Leukocyte Esterase,Urine Negative (Negative); Nitrate,Urine Negative (Negative); PH,Urine 6.5 (5.0-8.5); Protein,Urine Negative (Negative); Urobilinogen,Urine 0.2 EU/dl (0.2)
[2024-12-14 21:51] LABS: Hepatitis C Ab Qual. W/ RFX NEGATIVE (Negative)
[2024-12-14 22:02] LABS: Bacteria,Urine Trace /lpf; WBC,Urine Occasional #/hpf (0-3)
--- NOTE | 2024-12-14 23:53 | PC.NURSE ---
Patient arrived to floor via wheelchair from ED at 23:50.
[2024-12-15] VITALS: BP 159/92; PULSE 69; RESP 17; TEMP 36.7; O2SAT 96
--- NOTE | 2024-12-15 00:23 | P.HP_ITS ---
<Statement entered by Otilio Catherine MD - 12/15/24 21:28> Rounded on patient after nurse practitioner. Personally examined and interviewed patient. Agree with exam findings and care plan as documented. History of Present Illness *Admission Date: 12/14/24 *Reason for visit:: Heat exhaustion *History of present illness: Mr. Callaway is a 79-year-old male who presents ER complaints of headache and nausea. Patient denies any past medical history. Patient states he works at the [employer] and had been working in and out of the heat for approximately 8 hours and then went golfing for an hour and a half. He states he has been hydrating with water today but still had a headache and nausea. He reports the headache is dull in nature and rates it a 6 out of 10. He denies that this headache is uncharacteristic. He states he drinks beer while golfing 2 times a week. He denies excessive thirst or urination today. He denies fever/chills, cough, runny nose, congestion, shortness of breath, chest pain, vomiting, abdominal pain, diarrhea, constipation, lightheadedness, dizziness, or syncope. [facility] Disclaimer: The information contained in this section may have been updated after the patient was seen, as this information can be updated by other users. Surgical History History of surgery on arm History of appendectomy Family History (Updated 12/15/24 @ 00:22 by Belén Aragon RN) Mother Lung cancer Social History (Updated 12/15/24 @ 00:11 by Belén Aragon RN) Smoking Status: Never smoker alcohol intake: current current occupational status: retired Travel in the last 8 weeks?: None Have you lived/traveled outside [place] in past 30 days?: No Contact w/someone who lives/traveled outside US past 30 days?: No Exposure to someone with infectious disease in past 14 days?: No Do you have a fever (greater than 100.4 F or 38 C)?: No Have you tested positive for COVID-19?: No Exposed to someone with COVID-19 in past 14 days?: No Do you have a sore throat?: No Do you have a cough?: No Do you have any weakness?: No Do you have any diarrhea?: No Are you experiencing any unusual bleeding?: No Do you have any muscle aches/pain?: No Do you have any abdominal pain?: No Are you experiencing loss of taste or smell?: No Other Medical History Have you received the Flu Vaccine for this season: Yes Have you received the Pneumonia Vaccine: Yes Review of Systems Constitutional Constitutional: Denies chills, Denies fever(s) and Reports headache(s) ENT Ears, Nose, Mouth, and Throat: Denies dizziness and Reports headache(s) *Cardiovascular Cardiovascular: Denies chest pain and Denies dyspnea *Respiratory Respiratory: Denies cough and Denies dyspnea *Gastrointestinal Gastrointestinal: Denies abdominal pain, Denies constipation, Reports nausea and Denies vomiting *Genitourinary Genitourinary: Denies urinary frequency *Musculoskeletal Musculoskeletal: Denies muscle cramps *Neurologic Neurologic: Denies dizziness and Reports headache(s) Endocrine Endocrine: Denies polydipsia and Denies polyuria Allergic/Immunologic Allergic/Immunologic: Denies seasonal rhinorrhea Meds Home Medications and Allergies Home Medications ?Medication ?Instructions ?Recorded ?Confirmed ?Type finasteride 5 mg tablet 5 mg PO DAILY 01/04/1812/15 History tamsulosin 0.4 mg capsule 0.4 mg PO DAILY 01/04/18 History hydrocodone 5 mg-acetaminophen 325 1 tab PO Q8H PRN co ugh #30 tabs 05/22/24 12/15/24 Rx mg tablet lorazepam 0.5 mg tablet 0.5 mg PO TID PRN anxiety #6 0 tabs 11/03/24 12/15/24 Rx indomethacin 25 mg capsule 25 mg PO Q8H PRN Migraines 12/15/24 12/15/24 History omeprazole 40 mg capsule,delayed 40 mg PO DAILY 12/15/24 History release sertraline 50 mg tablet 50 mg PO DAILY 12/15/2411/20 History trazodone 50 mg tablet 50 mg PO HS 12/15/24 5 History New Prescriptions to Start Prescriptions: Allergies Allergy/AdvReac Type Severity Reaction Status Date / Time No Known Allergies Allergy Verified 05/22/24 15:08 Exam Data for Last 24 hours Vital signs and Labs for Last 24 Hours: Temp Pulse Resp BP Pulse Ox O2 Del Method 97.9 F 64 14 149/88 H 94 L Room Air 12/14/24 23:12 12/14/24 23:12 12/14/24 23:12 12/14/24 23:12 12/14/24 23:00 12/14/24 23:12 Laboratory Results - last 24 hr 12/14/24 20:15: WBC 9.9, RBC 4.25 L, Hgb 13.2 L, Hct 37.5 L, MCV 88.2, MCH 31.1, MCHC 35.2, RDW 11.9, Plt Count 263, MPV 9.1, Neut % (Auto) 67.9, Lymph % (Auto) 24.0, [place] % (Auto) 6.6, Eos % (Auto) 0.9, Baso % (Auto) 0.3, Neut # (Auto) 6.7, Lymph # (Auto) 2.4, [place] # (Auto) 0.7, Eos # (Auto) 0.1, Baso # (Auto) 0.0, PT 11.1, INR 1.00, VBG pH 7.41, VBG pCO2 32.5 L, VBG pO2 77.8 H, VBG HCO3 20.2 L, VBG Total CO2 21.2 L, VBG O2 Saturation 95.8 H, VBG Base Excess -4.4 L, VBG Lactic Acid 1.5, Sodium 123 L, Potassium 3.7, Chloride 94 L, Carbon Dioxide 21 L , Anion Gap 11.7, BUN 14, Creatinine 1.00, Estimated Creat Clear 87, Estimated GFR 72, Est GFR ( Amer) 88, Glucose 118 H, Calcium 8.8, Phosphorus 2.9, Magnesium 1.5 L, Total Bilirubin 1.1, AST 30, ALT 19, Alkaline Phosphatase 51, Total Creatine Kinase 183 H, Troponin I < 0.01, Total Protein 6.8, Albumin 4.1, Globulin 2.7, Albumin/Globulin Ratio 1.5, TSH 1.62, Thyroxine (T4) 8.1, HCV Ab SANCHEZ w/Rflx PCR Qn Negative, HIV Ag/Ab Combo Qual Negative 12/14/24 21:35: Urine Color Yellow, Urine Appearance Clear, Urine pH 6.5, Ur Specific [place] 1.010, Urine Protein Negative, Urine Glucose (UA) Negative, Urine Ketones Negative, Urine Blood Negative, Urine Nitrate Negative, Urine Bilirubin Negative, Urine Urobilinogen 0.2, Ur Leukocyte Esterase Negative, Urine RBC None, Urine WBC Occasional, Ur Squamous Epith Cells None, Urine Bacteria Trace, Urine Sodium 125.0 H I & O for Last 24 hours: Intake & Output 12/12/24 12/13/24 12/14/24 12/15/24 23:59 23:59 23:59 23:59 Weight 98.883 kg *Routine HEENT Exam Head: Present normocephalic and atraumatic Eye: Present EOMI and PERRL ENT: Present mucous membranes moist and oropharynx clear *Routine Neck Exam Neck: Present supple and full ROM *Routine Respiratory Exam Respiratory: Present CTA bilaterally, able to speak in complete sentences and symmetric chest movement; Absent accessory muscle use or respiratory distress *Routine Cardiovascular Exam Cardiovascular: Present RRR, Normal S1 and Normal S2 *Routine Abdominal Exam Abdominal: Present soft and normoactive bowel sounds; Absent tenderness or distended *Routine Rectal Exam Rectal:: deferred *Routine Genitalia Exam Genitalia:: deferred *Routine Extremities Exam Extremities: Present full ROM, pulses intact and normal capillary refill; Absent edema *Routine Skin Exam Skin: Present intact, dry and warm *Routine Neurological Exam Neurological: Present alert, CN II-XII intact and moving all extremities Assessment and Plan *Assessment and plan (1) Acute hyponatremia: Status: Acute Category: Medical Code(s): E87.1 - Hypo-osmolality and hyponatremia Plan: Normal saline 100 mL an hour Monitor BMP Urine sodium 125 If sodium not corrected by fluids and this is more SIADH may need to do fluid restriction instead (2) Dehydration: Status: Acute Category: Medical Code(s): E86.0 - Dehydration Plan: IV fluids Encourage p.o. fluid intake (3) Headache: Status: Acute Category: Medical Code(s): R51.9 - Headache, unspecified Plan: Analgesics as needed Fioricet 1 tab every 4 hours as needed for headache (4) Hypomagnesemia: Status: Acute Category: Medical Code(s): E83.42 - Hypomagnesemia Plan: Magnesium 1.5, 2 g magnesium sulfate ordered Repeat in a.m. and replace as needed
[2024-12-15] MEDS: TRAZODONE 50MG TABLET 50 MG PO (00:45)
[2024-12-15] MEDS: LORazepam 0.5MG TABLET 0.5 MG PO (00:45)
[2024-12-15] MEDS: 0.9 % SODIUM CHLORIDE 1000ML 1,000 ML 100 ML IV (00:45)
[2024-12-15] MEDS: MAGNESIUM SULFATE IN WATER 2 GM/50 ML PIGGYBACK IV (00:53)
[2024-12-15 03:35] LABS: Troponin I < 0.01 ng/ml (0.00-0.034)
[2024-12-15 04:00] VITALS: BP 116/63; PULSE 55; RESP 17; TEMP 36.6; O2SAT 96; BMI 31.1
[2024-12-15 06:48] LABS: Basophils % 0.6 % (0.1-2.0); Eosinophils # 0.2 Kmm3 (0.0-0.4); Eosinophils % 3.5 % (0.1-12.0); Hematocrit 35.8 % (42.0-52.0); Hemoglobin 12.7 g/dL (14.1-18.0); Immature Granulocytes # 0.02 10^3uL; Immature Granulocytes % 0.3 %; Lymphocytes # 2.2 K/mm3 (0.7-4.5); Lymphocytes % 32.6 % (10-50); Mean Corpuscular HGB Conc 35.5 g/dL (31.8-35.4); Mean Corpuscular Hemoglobin 31.1 pg (27.0-31.2); Mean Corpuscular Volume 87.5 fl (80-94); Mean Platelet Volume 9.4 fl (7.4-10.4); Monocytes # 0.5 K/mm3 (0.1-1.0); Monocytes % 7.7 % (1.7-9.3); Neutrophils # 3.7 K/mm3 (1.8-7.8); Neutrophils % 55.3 % (37.0-80.0); Nucleated Red Blood Cells # 0 10^3/uL; Nucleated Red Blood Cells % 0 %; Platelet Count 254 K/mm3 (142-424); Red Blood Count 4.09 M/mm3 (4.60-6.20); Red Cell Distribution Width 11.5 % (11.5-17.5); White Blood Count 6.7 K/mm3 (4.8-10.8)
[2024-12-15 06:50] LABS: Chloride 96 mmol/L (98-107); Potassium 3.4 mmoL/L (3.5-5.1); Sodium 128 mmol/L (136-145)
[2024-12-15 06:53] LABS: Anion Gap 12.4 mEq/L (5-15); Blood Urea Nitrogen 10 mg/dl (9-20); Calcium 8.1 mg/dl (8.4-10.2); Carbon Dioxide 23 mmol/L (22.0-30.0); Creatinine Clearance Estimated 91 mL/min (50-200); Estimated Glomerular Filt Rate 82 ml/min (>60); GFR (African American) 99 ML/MIN (>60); Glucose 99 mg/dl (74-100)
[2024-12-15 07:30] VITALS: BP 143/76; PULSE 58; RESP 15; TEMP 36.7; O2SAT 95
[2024-12-15 07:30] LABS: Magnesium 2.2 mg/dl (1.6-2.3)
[2024-12-15] MEDS: POTASSIUM CHLORIDE 20MEQ TAB 40 MEQ PO (08:12)
[2024-12-15] MEDS: SERTRALINE 50MG TABLET 50 MG PO (08:12)
[2024-12-15] MEDS: FINASTERIDE 5MG TABLET 5 MG PO (08:13)
[2024-12-15] MEDS: ENOXAPARIN 40MG/0.4ML SYRINGE 40 MG SUBCUT (08:13)
--- NOTE | 2024-12-15 09:49 | P.DS_ITS ---
<Statement entered by Otilio Catherine MD - 12/15/24 15:26> Rounded on patient after nurse practitioner. Personally examined and interviewed patient. Agree with exam findings and care plan as documented. General Admission date:: 12/14/24 Discharge date: 12/15/24 HPI HPI HPI: Mr. Callaway is a 79-year-old male who presents ER complaints of headache and nausea. Patient denies any past medical history. Patient states he works at the [employer] and had been working in and out of the heat for approximately 8 hours and then went golfing for an hour and a half. He states he has been hydrating with water today but still had a headache and nausea. He reports the headache is dull in nature and rates it a 6 out of 10. He denies that this headache is uncharacteristic. He states he drinks beer while golfing 2 times a week. He denies excessive thirst or urination today. He denies fever/chills, cough, runny nose, congestion, shortness of breath, chest pain, vomiting, abdominal pain, diarrhea, constipation, lightheadedness, dizziness, or syncope. Hospital Course Hospital Course Hospital Course: Mr. Callaway is a 79-year-old male who was admitted from the emergency room with headache, nausea, and weakness. He stated that he had been golfing out in the sun for about 8 hours and had had a few beers and he began to feel ill. He denied fever, congestion, shortness of breath, chest pain, vomiting, abdominal pain, vomiting, diarrhea, dizziness, or syncope. He was found to have hyponatremia and hypomagnesemia, and was admitted to the hospital for acute dehydration. He was given IV fluids overnight and his magnesium was replaced. He states he feels much better this morning back to baseline. His is at bedside. Discussed following up closely with his PCP outpatient. Discussed measures to take to avoid dehydration. #Dehydration #Hyponatremia #Hypomagnesemia #Hypokalemia ?Patient's sodium improved from 123-128 today. Magnesium improved after replacement,1.5-2.2 at discharge. ?Patient received 1 L bolus in the emergency room, followed by NS 100 mL/hour overnight. ?Patient potassium this morning was 3.4, orally replaced with 40 mEq potassium. Total time spent on discharge 27 minutes in counseling, documentation, chart review, and direct care with patient. Exam Data for Last 24 hours Vital signs and Labs for Last 24 Hours: Temp Pulse Resp BP Pulse Ox O2 Del Method 98.1 F 58 L 15 143/76 H 95 Room Air 12/15/24 07:30 12/15/24 07:30 12/15/24 07:30 12/15/24 07:30 12/15/24 07:30 12/15/24 08:21 Laboratory Results - last 24 hr 12/14/24 20:15: WBC 9.9, RBC 4.25 L, Hgb 13.2 L, Hct 37.5 L, MCV 88.2, MCH 31.1, MCHC 35.2, RDW 11.9, Plt Count 263, MPV 9.1, Neut % (Auto) 67.9, Lymph % (Auto) 24.0, [place] % (Auto) 6.6, Eos % (Auto) 0.9, Baso % (Auto) 0.3, Neut # (Auto) 6.7, Lymph # (Auto) 2.4, [place] # (Auto) 0.7, Eos # (Auto) 0.1, Baso # (Auto) 0.0, PT 11.1, INR 1.00, VBG pH 7.41, VBG pCO2 32.5 L, VBG pO2 77.8 H, VBG HCO3 20.2 L, VBG Total CO2 21.2 L, VBG O2 Saturation 95.8 H, VBG Base Excess -4.4 L, VBG Lactic Acid 1.5, Sodium 123 L, Potassium 3.7, Chloride 94 L, Carbon Dioxide 21 L , Anion Gap 11.7, BUN 14, Creatinine 1.00, Estimated Creat Clear 87, Estimated GFR 72, Est GFR ( Amer) 88, Glucose 118 H, Calcium 8.8, Phosphorus 2.9, Magnesium 1.5 L, Total Bilirubin 1.1, AST 30, ALT 19, Alkaline Phosphatase 51, Total Creatine Kinase 183 H, Troponin I < 0.01, Total Protein 6.8, Albumin 4.1, Globulin 2.7, Albumin/Globulin Ratio 1.5, TSH 1.62, Thyroxine (T4) 8.1, HCV Ab SANCHEZ w/Rflx PCR Qn Negative, HIV Ag/Ab Combo Qual Negative 12/14/24 21:35: Urine Color Yellow, Urine Appearance Clear, Urine pH 6.5, Ur Specific [place] 1.010, Urine Protein Negative, Urine Glucose (UA) Negative, Urine Ketones Negative, Urine Blood Negative, Urine Nitrate Negative, Urine Bilirubin Negative, Urine Urobilinogen 0.2, Ur Leukocyte Esterase Negative, Urine RBC None, Urine WBC Occasional, Ur Squamous Epith Cells None, Urine Bacteria Trace, Urine Sodium 125.0 H 12/15/24 02:38: Troponin I < 0.01 12/15/24 05:40: WBC 6.7 D, RBC 4.09 L, Hgb 12.7 L, Hct 35.8 L, MCV 87.5, MCH 31.1, MCHC 35.5 H, RDW 11.5, Plt Count 254, MPV 9.4, Neut % (Auto) 55.3, Lymph % (Auto) 32.6, [place]oke % (Auto) 7.7, Eos % (Auto) 3.5, Baso % (Auto) 0.6, Neut # (Auto) 3.7, Lymph # (Auto) 2.2, Hoke # (Auto) 0.5, Eos # (Auto) 0.2, Baso # (Auto) 0.0, Sodium 128 L, Potassium 3.4 L, Chloride 96 L, Carbon Dioxide 23, Anion Gap 12.4, BUN 10 D, Creatinine 0.90, Estimated Creat Clear 91, Estimated GFR 82, Est GFR ( Amer) 99, Glucose 99, Calcium 8.1 L, Magnesium 2.2 D I & O for Last 24 hours: Intake & Output 12/12/24 12/13/24 12/14/24 12/15/24 23:59 23:59 23:59 23:59 Intake Total 600 / 600 Output Total 1000 / 1000 Balance -400 / -400 Weight 98.883 kg 104.326 kg Constitutional Constitutional: no acute distress and cooperative *Routine HEENT Exam Head: Present normocephalic Eye: Present EOMI and PERRL ENT: Present mucous membranes moist *Routine Neck Exam Neck: Present supple and full ROM; Absent JVD *Routine Respiratory Exam Respiratory: Present CTA bilaterally, normal respiratory effort, able to speak in complete sentences and symmetric chest movement *Routine Cardiovascular Exam Cardiovascular: Present RRR *Routine Abdominal Exam Abdominal: Present soft and normoactive bowel sounds; Absent tenderness or distended *Routine Extremities Exam Extremities: Present full ROM; Absent edema *Routine Skin Exam Skin: Present intact and dry *Routine Neurological Exam Neurological: Present alert, oriented X3 and normal speech Results Data Completed and Pending Labs on day of discharge: Labs from last 24 hours 12/15/24 12/15/24 12/14/24 05:40 02:38 21:35 WBC 6.7 D RBC 4.09 L Hgb 12.7 L Hct 35.8 L MCV 87.5 MCH 31.1 MCHC 35.5 H RDW 11.5 Plt Count 254 MPV 9.4 Neut % (Auto) 55.3 Lymph % (Auto) 32.6 Hoke % (Auto) 7.7 Eos % (Auto) 3.5 Baso % (Auto) 0.6 Neut # (Auto) 3.7 Lymph # (Auto) 2.2 Hoke # (Auto) 0.5 Eos # (Auto) 0.2 Baso # (Auto) 0.0 PT INR VBG pH VBG pCO2 VBG pO2 VBG HCO3 VBG Total CO2 VBG O2 Saturation VBG Base Excess VBG Lactic Acid Sodium 128 L Potassium 3.4 L Chloride 96 L Carbon Dioxide 23 Anion Gap 12.4 BUN 10 D Creatinine 0.90 Estimated Creat Clear 91 Estimated GFR 82 Est GFR ( Amer) 99 Glucose 99 Calcium 8.1 L Phosphorus Magnesium 2.2 D Total Bilirubin AST ALT Alkaline Phosphatase Total Creatine Kinase Troponin I < 0.01 Total Protein Albumin Globulin Albumin/Globulin Ratio TSH Thyroxine (T4) Urine Color Yellow Urine Appearance Clear Urine pH 6.5 Ur Specific [place] 1.010 Urine Protein Negative Urine Glucose (UA) Negative Urine Ketones Negative Urine Blood Negative Urine Nitrate Negative Urine Bilirubin Negative Urine Urobilinogen 0.2 Ur Leukocyte Esterase Negative Urine RBC None Urine WBC Occasional Ur Squamous Epith Cells None Urine Bacteria Trace Urine Sodium 125.0 H HCV Ab SANCHEZ w/Rflx PCR Qn HIV Ag/Ab Combo Qual 12/14/24 20:15 WBC 9.9 RBC 4.25 L Hgb 13.2 L Hct 37.5 L MCV 88.2 MCH 31.1 MCHC 35.2 RDW 11.9 Plt Count 263 MPV 9.1 Neut % (Auto) 67.9 Lymph % (Auto) 24.0 H[place] % (Auto) 6.6 Eos % (Auto) 0.9 Baso % (Auto) 0.3 Neut # (Auto) 6.7 Lymph # (Auto) 2.4 [place] # (Auto) 0.7 Eos # (Auto) 0.1 Baso # (Auto) 0.0 PT 11.1 INR 1.00 VBG pH 7.41 VBG pCO2 32.5 L VBG pO2 77.8 H VBG HCO3 20.2 L VBG Total CO2 21.2 L VBG O2 Saturation 95.8 H VBG Base Excess -4.4 L VBG Lactic Acid 1.5 Sodium 123 L Potassium 3.7 Chloride 94 L Carbon Dioxide 21 L Anion Gap 11.7 BUN 14 Creatinine 1.00 Estimated Creat Clear 87 Estimated GFR 72 Est GFR ( Amer) 88 Glucose 118 H Calcium 8.8 Phosphorus 2.9 Magnesium 1.5 L Total Bilirubin 1.1 AST 30 ALT 19 Alkaline Phosphatase 51 Total Creatine Kinase 183 H Troponin I < 0.01 Total Protein 6.8 Albumin 4.1 Globulin 2.7 Albumin/Globulin Ratio 1.5 TSH 1.62 Thyroxine (T4) 8.1 Urine Color Urine Appearance Urine pH Ur Specific [place] Urine Protein Urine Glucose (UA) Urine Ketones Urine Blood Urine Nitrate Urine Bilirubin Urine Urobilinogen Ur Leukocyte Esterase Urine RBC Urine WBC Ur Squamous Epith Cells Urine Bacteria Urine Sodium HCV Ab SANCHEZ w/Rflx PCR Qn Negative HIV Ag/Ab Combo Qual Negative DS: Diagnosis Discharge Diagnosis (1) Acute hyponatremia: Status: Acute Code(s): E87.1 - Hypo-osmolality and hyponatremia (2) Dehydration: Status: Acute Code(s): E86.0 - Dehydration (3) Headache: Status: Acute Code(s): R51.9 - Headache, unspecified (4) Hypomagnesemia: Status: Acute Code(s): E83.42 - Hypomagnesemia Meds Home Medications and Allergies Home Medications ?Medication ?Instructions ?Recorded ?Confirmed ?Type finasteride 5 mg tablet 5 mg PO DAILY 01/04/1812/15 History tamsulosin 0.4 mg capsule 0.4 mg PO HS 01/04/18 History lorazepam 0.5 mg tablet 0.5 mg PO TID PRN anxiety #6 0 tabs 11/03/24 12/15/24 Rx indomethacin 25 mg capsule 25 mg PO Q8H PRN Migraines 12/15/24 12/15/24 History omeprazole 40 mg capsule,delayed 40 mg PO DAILY 12/15/24 History release sertraline 50 mg tablet 50 mg PO DAILY 12/15/2411/20 History trazodone 50 mg tablet 50 mg PO HS 12/15/24 5 History New Prescriptions to Start Prescriptions: Allergies Allergy/AdvReac Type Severity Reaction Status Date / Time No Known Allergies Allergy Verified 05/22/24 15:08 Discharge Plan Disposition Patient Disposition: Home, Self-Care Condition: Fair Follow up Plan Follow up with: Reymundo Segura MD [Primary Care Provider, Medical] - Enter time for follow up Prescriptions/Medication Reconciliation: Continued finasteride 5 mg tablet 5 mg PO DAILY tamsulosin 0.4 mg capsule 0.4 mg PO HS lorazepam 0.5 mg tablet 0.5 mg PO TID PRN (Reason: anxiety) Qty: 60 1RF trazodone 50 mg tablet 50 mg PO HS omeprazole 40 mg capsule,delayed release(DR/EC) 40 mg PO DAILY Rx Instructions: TAKE ONE CAPSULE BY MOUTH EVERY DAY indomethacin 25 mg capsule 25 mg PO Q8H PRN (Reason: Migraines) sertraline 50 mg tablet 50 mg PO DAILY Rx Instructions: TAKE ONE TABLET BY MOUTH EVERY DAY Problem Reconciliation Problems Reviewed?: Yes Patient Discharge Instructions ACTIVITY: Continue current activity DIET: continue same diet Patient Instructions: DI for Dehydration -- Adult, DI for Hyponatremia Print Language: Lithuanian Providers Primary Care Provider: Reymundo Segura Admit Provider: Otilio Catherine Attending Provider: Otilio Catherine
--- NOTE | 2024-12-18 11:03 | SW/DCPLANNER ---
Spoke with patient on the phone. Patient stated that he is doing well. Patient stated that he is aware of his upcoming appointment. Patient stated that he was not prescribed any new medicine. Patient stated that he has no concerns or questions at this time. Prema Gilbert
== END 2024-12-15 11:40 | disposition home or self-care (01) ==
LOC: ER 22:38 → 2ND 22:46
PROVIDERS: Nurse Practitioner Family; Admitting Provider Internal Medicine Adolescent Medicine; Emergency Provider Emergency Medicine; PCP Internal Medicine; Visit Provider Internal Medicine Adolescent Medicine
DX: E86.0 Dehydration (principal); E87.1 Hypo-osmolality and hyponatremia; E83.42 Hypomagnesemia; E87.6 Hypokalemia; I44.0 Atrioventricular block, first degree; G43.909 Migraine, unspecified, not intractable, without status migrainosus; F41.9 Anxiety disorder, unspecified; J01.90 Acute sinusitis, unspecified; R93.89 Abnormal findings on diagnostic imaging of other specified body structures; Z79.899 Other long term (current) drug therapy
CPT/HCPCS: 96361 ×2; 96365; 96375; 36415; 70450; 80048; 80053; 81001; 82550; 82803; 83735; 84100; 84436; 84443; 84484; 84540; 85025; 85610; 86803; 87389; 93005; G0378; J0131; J1200; J1650; J1885; J2765; J3475; J7030; J7120

== ENCOUNTER 2024-12-21 10:35 | Outpatient (CLI) | payer MEDICARE, SELFPAY ==
[2024-12-21 17:05] LABS: Chloride 100 mmol/L (98-107); Potassium 5.3 mmoL/L (3.5-5.1); Sodium 134 mmol/L (136-145)
[2024-12-21 17:08] LABS: Anion Gap 14.3 mEq/L (5-15); Blood Urea Nitrogen 21 mg/dl (9-20); Calcium 9.1 mg/dl (8.4-10.2); Carbon Dioxide 25 mmol/L (22.0-30.0); Creatinine,Serum 1.20 mg/dl (0.66-1.25); Estimated Glomerular Filt Rate 59 ml/min (>60); GFR (African American) 71 ML/MIN (>60); Glucose 87 mg/dl (74-100); Magnesium 1.9 mg/dl (1.6-2.3)
== END 2024-12-21 23:59 | disposition home or self-care (01) ==
LOC: LAB.DROPOF 12-25 10:36
PROVIDERS: PCP Internal Medicine; Visit Provider Internal Medicine
DX: E87.1 Hypo-osmolality and hyponatremia (principal); E87.6 Hypokalemia; E86.0 Dehydration; R25.2 Cramp and spasm; E83.42 Hypomagnesemia
CPT/HCPCS: 80048; 83735

== ENCOUNTER 2025-01-24 09:10 | Outpatient (CLI) | payer MEDICARE, SELFPAY ==
[2025-01-24 14:07] LABS: Hematocrit 45.5 % (42.0-52.0); Hemoglobin 15.2 g/dL (14.1-18.0); Immature Granulocytes % 0.3 %; Mean Corpuscular HGB Conc 33.4 g/dL (31.8-35.4); Mean Corpuscular Hemoglobin 31.5 pg (27.0-31.2); Mean Corpuscular Volume 94.4 fl (80-94); Nucleated Red Blood Cells % 0 %; Platelet Count 302 K/mm3 (142-424); Red Blood Count 4.82 M/mm3 (4.60-6.20); Red Cell Distribution Width-SD 42.7 fL; White Blood Count 7.0 K/mm3 (4.8-10.8)
[2025-01-24 14:40] LABS: Chloride 103 mmol/L (98-107)
[2025-01-24 14:41] LABS: Albumin Level 4.4 g/dl (3.5-5.0); Sodium 135 mmol/L (136-145)
[2025-01-24 14:42] LABS: Potassium 5.6 mmoL/L (3.5-5.1)
[2025-01-24 14:44] LABS: Alanine Aminotransferase 22 U/L (12-78); Albumin/Globulin Ratio 1.6 (1.1-1.8); Alkaline Phosphatase 68 U/L (38-126); Anion Gap 9.6 mEq/L (5-15); Aspartate Amino Transferase 28 U/L (17-59); Bilirubin,Total 0.4 mg/dl (0.2-1.3); Blood Urea Nitrogen 27 mg/dl (9-20); Carbon Dioxide 28 mmol/L (22.0-30.0); Cholesterol 233 mg/dl (140-200); Creatinine,Serum 1.10 mg/dl (0.66-1.25); Estimated Glomerular Filt Rate 65 ml/min (>60); GFR (African American) 79 ML/MIN (>60); Globulin 2.8 g/dL (1.3-3.2); Total Protein,Serum 7.2 g/dl (6.3-8.2); Triglycerides 136 mg/dl (30-150)
[2025-01-24 14:45] LABS: Calcium 9.5 mg/dl (8.4-10.2); Glucose 85 mg/dl (74-100); HDL Cholesterol 44 mg/dl (40-60)
== END 2025-01-24 23:59 | disposition home or self-care (01) ==
LOC: LAB.DROPOF 01-25 13:46
PROVIDERS: PCP Internal Medicine; Visit Provider Internal Medicine
DX: E87.1 Hypo-osmolality and hyponatremia (principal); R25.2 Cramp and spasm; E78.5 Hyperlipidemia, unspecified; D64.9 Anemia, unspecified
CPT/HCPCS: 80053; 80061; 85025